=== PATIENT | female | born 1975 ===

== ENCOUNTER 2020-05-09 18:13 | Outpatient (REF) | payer MEDICAID, SELFPAY ==
[2020-05-13 03:13] LABS: SARS-CoV-2 RNA Undetected (Undetected); SARS-CoV-2 Specimen Source Nasal
== END 2020-05-09 18:33 ==
LOC: NCHCN 18:13
PROVIDERS: Visit Provider Family Medicine
DX: Z20.828 Contact with and (suspected) exposure to other viral communicable diseases (principal)
CPT/HCPCS: U0003